=== PATIENT | male | born 1960 | race African-American/Black ===

== ENCOUNTER 2018-09-04 21:24 | Emergency (ER) | payer OTHER ==
--- NOTE | 2018-09-04 22:38 | RAD REPORT ---
EXAM DESCRIPTION: Shoulder Right 2 View - 09/04/2018 10:21 pm CLINICAL HISTORY: Pain x1 week COMPARISON: None. TECHNIQUE: Internal and external rotation views of the right shoulder were obtained. FINDINGS: There is no fracture or dislocation. AC joint is normal in appearance. No acute or suspici ous findings. IMPRESSION: Negative two-view right shoulder examination.
[2018-09-04] MEDS ORDERED: CYCLOBENZAPRINE 10 MG TAB ONE (23:10)
[2018-09-04] MEDS ORDERED: HYDROCODONE/APAP 10/325 TAB ONE (23:11)
[2018-09-04] MEDS ORDERED: DEXAMETHASONE 4 MG/ML VIAL ONE (23:12)
--- NOTE | 2018-09-04 23:18 | ER ---
Nurse's Notes [facility] Name: Luther Otoole Age: 58 yrs Sex: Male : 1960 Arrival Date: 09/04/2018 Time: 21:27 Bed 14 Private MD: Diagnosis: Unspecified sprain of right shoulder joint;Radiculopathy, cervical region;Muscle spasm Presentation: 09/04 21:55 Presenting complaint: Patient states: Right neck, shoulder and arm pain since 1 week cc3 after lifting a heavy object. Transition of care: patient was not received from another setting of care. Onset of symptoms is unknown. Risk Assessment: Do you want to hurt yourself or someone else? Patient reports no desire to harm self or others. Initial Sepsis Screen: Does the patient meet any 2 criteria? No. Patient's initial sepsis screen is negative. Does the patient have a suspected source of infection? No. Patient's initial sepsis screen is negative. Care prior to arrival: None. 21:55 Method Of Arrival: Ambulatory cc3 21:55 Acuity: KIMMIE 3 cc3 Triage Assessment: 21:55 General: Appears in no apparent distress. uncomfortable, Behavior is calm, cooperative, cc3 appropriate for age. Pain: Complains of pain in anterior aspect of right shoulder. EENT: No signs and/or symptoms were reported regarding the EENT system. Neuro: Level of Consciousness is awake, alert, obeys commands, Oriented to person, place, time, situation, Appropriate for age. Cardiovascular: Denies chest pain, Patient's skin is warm and dry. Respiratory: Airway is patent Respiratory effort is even, unlabored, Respiratory pattern is regular, symmetrical. GI: Abdomen is round non-distended. : No signs and/or symptoms were reported regarding the genitourinary system. Derm: No signs and/or symptoms reported regarding the dermatologic system. Musculoskeletal: Circulation, motion, and sensation intact. Range of motion: intact in all extremities. Historical: - Allergies: 21:55 No Known Allergies; cc3 - PMHx: 21:55 Hypertension; cc3 - PSHx: 21:55 None; cc3 - Immunization history:: Adult Immunizations up to date. - Social history:: Smoking status: Patient uses tobacco products, denies chronic smoking, but will smoke occasionally. - Ebola Screening: : No symptoms or risks identified at this time. - Family history:: not pertinent. - Hospitalizations: : No recent hospitalization is reported. Screenin:55 Abuse screen: Denies threats or abuse. Denies injuries from another. Nutritional cc3 screening: No deficits noted. Tuberculosis screening: No symptoms or risk factors identified. Fall Risk Ambulatory Aid- None/Bed Rest/Nurse Assist (0 pts). Gait- Normal/Bed Rest/Wheelchair (0 pts) Mental Status- Oriented to own ability (0 pts). Assessment: 21:55 General: see triage assessment. cc3 22:30 Reassessment: Patient appears in no apparent distress at this time. Patient and/or cc3 family updated on plan of care and expected duration. Pain level reassessed. Patient is alert, oriented x 3, equal unlabored respirations, skin warm/dry/pink. 23:40 Reassessment: Patient appears in no apparent distress at this time. Patient and/or cc3 family updated on plan of care and expected duration. Pain level reassessed. Patient is alert, oriented x 3, equal unlabored respirations, skin warm/dry/pink. Dr. Curtis discharged the patient home with prescription given. Right arm sling applied as ordered. No IV cannula in situ. Patient left ER vitally stable and ambulatory with his . Vital Signs: 21:55 BP 150 / 105; Pulse 86; Resp 20 S; Temp 98.2(O); Pulse Ox 99% on R/A; Weight 87.09 kg cc3 (R); Height 5 ft. 9 in. (175.26 cm) (R); Pain 10/10; 22:30 BP 142 / 96; Pulse 88; Resp 18 S; Pulse Ox 99% on R/A; cc3 23:30 BP 135 / 98; Pulse 85; Resp 18 S; Pulse Ox 98% on R/A; Pain 4/10; cc3 21:55 Body Mass Index 28.35 (87.09 kg, 175.26 cm) cc3 ED Course: 21:27 Patient arrived in ED. es 21:49 Carly Morgan is Primary Nurse. cc3 21:54 Aristeo Curtis MD is Attending Physician. rn 21:55 Arm band placed on right wrist. cc3 21:55 Patient has correct armband on for positive identification. Bed in low position. Call cc3 light in reach. Side rails up X 1. Pulse ox on. NIBP on. 22:08 Triage completed. cc3 22:20 X-ray completed. Portable x-ray completed in exam room. Patient tolerated procedure kp1 well. 22:21 XRAY Shoulder RIGHT 2 view In Process Unspecified. EDMS 23:17 Juan F Vásquez MD is Referral Physician. rn 23:40 No provider procedures requiring assistance completed. Patient did not have IV access cc3 during this emergency room visit. Administered Medications: 23:05 Drug: [place] 10 mg-325 mg 1 tabs Route: PO; cc3 23:30 Follow up: Response: No adverse reaction; Pain is decreased cc3 23:05 Drug: Flexeril 10 mg Route: PO; cc3 23:30 Follow up: Response: No adverse reaction; Pain is decreased cc3 23:07 Drug: Decadron 10 mg Route: IM; Site: right gluteus; cc3 23:30 Follow up: Response: No adverse reaction cc3 23:30 Drug: TORadol 60 mg Route: IM; Site: left gluteus; cc3 23:40 Follow up: Response: No adverse reaction; Pain is decreased cc3 Outcome: 23:17 Discharge ordered by . rn 23:40 Discharged to home ambulatory, with family. cc3 23:40 Condition: stable 23:40 Discharge instructions given to patient, family, Instructed on discharge instructions, follow up and referral plans. medication usage, Demonstrated understanding of instructions, follow-up care, medications, Prescriptions given X 3. 23:45 Patient left the ED. cc3 Signatures: Dispatcher [employer] EDCarolynn Dillon Roman, MD MD rn Poole, Kathy [facility] Carly Morgan cc3
--- NOTE | 2018-09-04 23:18 | EDPHYS ---
Physician Documentation [facility] Name: Luther Otoole Age: 58 yrs Sex: Male : 1960 Arrival Date: 09/04/2018 Time: 21:27 Bed 14 Private MD: ED Physician Aristeo Curtis HPI: 09/04 23:13 This 58 yrs old Black Male presents to ER via Ambulatory with complaints of Arm Pain, rn Shoulder Pain, Stiff Neck. 23:13 The patient or guardian complains of injury, pain. The complaints affect the anterior rn aspect of right shoulder. Onset: The symptoms/episode began/occurred 1 week(s) ago. Modifying factors: The symptoms are alleviated by nothing. the symptoms are aggravated by movement, lifting weight, bending arm. Severity of symptoms: At their worst the symptoms were moderate, in the emergency department the symptoms are unchanged. The patient has not experienced similar symptoms in the past. Reports last week, preparing for festival, lifted concrete bag, felt immediate pain in right shoulder, has been hurting since, now right neck and shoulder/arm hurt with movement and lifting things, no direct trauma, no chest pain, has had neck problems and pinched nerves in past. . Historical: - Allergies: 21:55 No Known Allergies; cc3 - PMHx: 21:55 Hypertension; cc3 - PSHx: 21:55 None; cc3 - Immunization history:: Adult Immunizations up to date. - Social history:: Smoking status: Patient uses tobacco products, denies chronic smoking, but will smoke occasionally. - Ebola Screening: : No symptoms or risks identified at this time. - Family history:: not pertinent. - Hospitalizations: : No recent hospitalization is reported. ROS: 23:13 Constitutional: Negative for fever, chills, and weight loss, Eyes: Negative for injury, rn pain, redness, and discharge, Neck: + neck pain Cardiovascular: Negative for chest pain, palpitations, and edema, Respiratory: Negative for shortness of breath, cough, wheezing, and pleuritic chest pain, Abdomen/GI: Negative for abdominal pain, nausea, vomiting, diarrhea, and constipation, Back: Negative for injury and pain, MS/Extremity: + right shoulder pain and injury Skin: Negative for injury, rash, and discoloration, Neuro: Negative for headache, weakness, numbness, tingling, and seizure. Exam: 23:13 Constitutional: This is a well developed, well nourished patient who is awake, alert, rn and in no acute distress. Head/Face: Normocephalic, atraumatic. Neck: Trachea midline, no masses palpated. No Meningismus. Chest/axilla: Normal chest wall appearance and motion. Nontender with no deformity. No lesions are appreciated. MS/ Extremity: Pulses equal, no cyanosis. Neurovascular intact. Full, passive ROM. Limited Active ROM, no deformity, + pain located to right shoulder joint, no bony tenderness or deformity. No crepitus. Neuro: Awake and alert, GCS 15, oriented to person, place, time, and situation. Cranial nerves II-XII grossly intact. Motor strength 5/5 in all extremities. Sensory grossly intact. Vital Signs: 21:55 BP 150 / 105; Pulse 86; Resp 20 S; Temp 98.2(O); Pulse Ox 99% on R/A; Weight 87.09 kg cc3 (R); Height 5 ft. 9 in. (175.26 cm) (R); Pain 10/10; 22:30 BP 142 / 96; Pulse 88; Resp 18 S; Pulse Ox 99% on R/A; cc3 23:30 BP 135 / 98; Pulse 85; Resp 18 S; Pulse Ox 98% on R/A; Pain 4/10; cc3 21:55 Body Mass Index 28.35 (87.09 kg, 175.26 cm) cc3 MDM: 21:54 Patient medically screened. rn 23:13 Differential diagnosis: dislocation, closed fracture, contusion, tendonitis, muscle rn spasm, tendonitis, radiculopathy. Data reviewed: vital signs, nurses notes, radiologic studies, plain films. 23:16 Counseling: I had a detailed discussion with the patient and/or guardian regarding: the rn historical points, exam findings, and any diagnostic results supporting the discharge/admit diagnosis, radiology results, the need for outpatient follow up, to return to the emergency department if symptoms worsen or persist or if there are any questions or concerns that arise at home. Response to treatment: the patient's symptoms have mildly improved after treatment, and as a result, I will discharge patient. Special discussion: I discussed with the patient/guardian in detail that at this point there is no indication for admission to the hospital. It is understood, however, that if the symptoms persist or worsen the patient needs to return immediately for re-evaluation. 09/04 22:03 Order name: ADENIKE Shoulder RIGHT 2 view; Complete Time: 22:39 rn Administered Medications: 23:05 Drug: [place] 10 mg-325 mg 1 tabs Route: PO; cc3 23:30 Follow up: Response: No adverse reaction; Pain is decreased cc3 23:05 Drug: Flexeril 10 mg Route: PO; cc3 23:30 Follow up: Response: No adverse reaction; Pain is decreased cc3 23:07 Drug: Decadron 10 mg Route: IM; Site: right gluteus; cc3 23:30 Follow up: Response: No adverse reaction cc3 23:30 Drug: TORadol 60 mg Route: IM; Site: left gluteus; cc3 23:40 Follow up: Response: No adverse reaction; Pain is decreased cc3 Disposition: 09/04/18 23:17 Discharged to Home. Impression: Unspecified sprain of right shoulder joint, Radiculopathy, cervical region, Muscle spasm. - Condition is Stable. - Discharge Instructions: Cervical Radiculopathy, Shoulder Pain, Shoulder Sprain. - Prescriptions for Tylenol- Codeine #3 300-30 mg Oral Tablet - take 1 tablet by ORAL route every 6 hours As needed; 15 tablet. Cyclobenzaprine 10 mg Oral Tablet - take 1 tablet by ORAL route every 8 hours As needed; 20 tablet. Medrol (Gabo) 4 mg Oral Tablets, Dose Pack - take 1 tablet by ORAL route as directed - follow package instructions; 1 packet. - Medication Reconciliation Form, Thank You Letter, Antibiotic Education, Prescription Opioid Use form. - Follow up: Juan F Vásquez MD; When: As needed; Reason: Recheck today's complaints, Re-evaluation by your physician. - Problem is an ongoing problem. - Symptoms have improved. Signatures: Dispatcher [employer] EDAristeo Sanders MD MD rn Cordel, Charlene cc3 Corrections: (The following items were deleted from the chart) 23:45 23:17 09/04/2018 23:17 Discharged to Home. Impression: Unspecified sprain of right cc3 shoulder joint; Radiculopathy, cervical region; Muscle spasm. Condition is Stable. Forms are Medication Reconciliation Form, Thank You Letter, Antibiotic Education, Prescription Opioid Use. Follow up: Dr. Juan F Vásquez; When: As needed; Reason: Recheck today's complaints, Re-evaluation by your physician. Problem is an ongoing problem. Symptoms have improved. rn
[2018-09-04] MEDS ORDERED: KETOROLAC 30 MG/ML INJ ONE (23:35)
== END 2018-09-04 23:45 | disposition home or self-care (01) ==
LOC: ER 21:24
DX: S43.401A Unspecified sprain of right shoulder joint, initial encounter (principal); M54.12 Radiculopathy, cervical region; M62.838 Other muscle spasm; I10 Essential (primary) hypertension; X50.0XXA Overexertion from strenuous movement or load, initial encounter; Y93.89 Activity, other specified; Y92.9 Unspecified place or not applicable; Y99.8 Other external cause status; Z72.0 Tobacco use
CPT/HCPCS: 96372; 99284

== ENCOUNTER 2018-09-16 09:08 | Emergency (ER) | payer OTHER ==
[2018-09-16] MEDS ORDERED: DEXAMETHASONE 10 MG/ML VIAL ONE (10:11)
[2018-09-16] MEDS ORDERED: HYDROMORPHONE HCL 1 MG/ML INJ ONE (10:12)
[2018-09-16] MEDS ORDERED: NA CHLORIDE 0.9% 1,000 ML ONE (10:12)
[2018-09-16] MEDS ORDERED: ONDANSETRON 4 MG/2 ML VIAL ONE (10:12)
[2018-09-16] MEDS ORDERED: DIAZEPAM 5 MG TABLET ONE (10:12)
[2018-09-16] MEDS ORDERED: KETOROLAC 30 MG/ML INJ ONE (10:12)
[2018-09-16 10:37] LABS: Absolute Lymphocytes (CBC) 3.5 K/uL (0.7-4.9); Absolute Monocytes 0.6 K/uL (0.1-1.3); Absolute Neutrophil 3.9 K/uL (1.8-8.0); Basophils % 0.8 % (0-1.3); Hematocrit 42.4 % (39.6-49.0); Lymphocytes % 41.6 % (15.3-44.8); MCH 30.8 pg (27.0-35.0); MCV 88.9 fL (80-100); MPV 8.5 fL (7.6-11.3); Monocytes % 7.6 % (3.3-12.3); RBC Red Blood Cell Count 4.77 M/uL (4.33-5.43)
--- NOTE | 2018-09-16 10:56 | RAD REPORT ---
EXAM DESCRIPTION: CT - C Spine Wo Con - 09/16/2018 10:33 am CLINICAL HISTORY: Neck pain, right upper extremity radiculopathy COMPARISON: None. TECHNIQUE: Axial 2 mm thick images of the cervical spine were obtained with sagittal and coronal rec onstruction images generated and reviewed. All CT scans are performed using dose optimization technique as appropriate and may include automated exposure control or mA/KV adjustment according to patient size. FINDINGS: Cervical bodies are normal in height. There is reversal of the usual cervical lordosis at C5-6. No AP subluxation abnormality. There is a minimal scoliotic curvature seen on the AP projection . Patient has left lateral tilt that is believed to be positional. Significant degenerative disc dise ase and disc space narrowing present at C 5-6. Bilateral bony foraminal encroachment changes are pres ent at C5-6. Canal is borderline stenotic at C5-6. No fracture or acute bony abnormality. No paraspinal mass or hematoma. Central canal detail is inherently limited on CT imaging. IMPRESSION: Advanced for age degenerative change at the C5-6 disc level with borderline spinal steno sis and bilateral foraminal encroachment.
[2018-09-16 11:00] LABS: Albumin 3.9 g/dL (3.4-5.0); Bilirubin Total 0.3 mg/dL (0.2-1.0); Potassium 4.5 mmol/L (3.5-5.1)
--- NOTE | 2018-09-16 11:06 | RAD REPORT ---
EXAM DESCRIPTION: Shoulder Right 2 View - 09/16/2018 10:07 am CLINICAL HISTORY: Persistent right neck and shoulder pain COMPARISON: September 04, 2018 TECHNIQUE: Internal and external rotation views of the right shoulder were obtained. FINDINGS: There is no fracture or dislocation. AC joint is normal in appearance. Acromial humeral j oint space is normal with no abnormal calcifications. No rib or parenchymal abnormality of the upper chest. IMPRESSION: Negative two-view right shoulder examination for acute or significant finding. No identifiable changes from September 04.
--- NOTE | 2018-09-16 11:52 | ER ---
Nurse's Notes [facility] Name: Luther Otoole Age: 58 yrs Sex: Male : 1960 Arrival Date: 09/16/2018 Time: 09:11 Bed 18 Private MD: Diagnosis: Radiculopathy, cervical region;Pain in right shoulder;Spinal stenosis, cervical [id number] Presentation: 09/16 09:18 Presenting complaint: Patient states: right shoulder and neck pain for a couple of sv weeks. Was seen here Thanksgiving night and sent home with prescriptions but the pain has not decreased. Transition of care: patient was not received from another setting of care. Onset of symptoms was August 2018. Care prior to arrival: None. 09:18 Method Of Arrival: Ambulatory sv 09:18 Acuity: KIMMIE 4 sv 11:00 Risk Assessment: Do you want to hurt yourself or someone else? Patient reports no bp desire to harm self or others. Initial Sepsis Screen: Does the patient meet any 2 criteria? No. Patient's initial sepsis screen is negative. Does the patient have a suspected source of infection? No. Patient's initial sepsis screen is negative. Triage Assessment: 09:20 General: Appears in no apparent distress. uncomfortable, Behavior is calm, cooperative, sv appropriate for age. Pain: Complains of pain in right arm, right posterior aspect of neck, right lateral aspect of neck and right anterior aspect of neck Pain currently is 10 out of 10 on a pain scale. Neuro: Level of Consciousness is awake, alert, obeys commands, Oriented to person, place, time, situation, Moves all extremities. Full function. Respiratory: Respiratory effort is even, unlabored, Respiratory pattern is regular, symmetrical. Historical: - Allergies: 09:20 No Known Allergies; sv - PMHx: 09:20 Hypertension; sv - PSHx: 09:20 None; sv - Immunization history:: Flu vaccine is up to date. - Social history:: Smoking status: Patient uses tobacco products, denies chronic smoking, but will smoke occasionally. - Ebola Screening: : No symptoms or risks identified at this time. - Family history:: not pertinent. Screenin:32 Abuse screen: Denies threats or abuse. Denies injuries from another. Nutritional bp screening: No deficits noted. Tuberculosis screening: No symptoms or risk factors identified. Fall Risk None identified. Assessment: 09:20 General: Appears in no apparent distress. uncomfortable, Behavior is calm, cooperative, bp appropriate for age. Pain: Complains of pain in neck and right arm. Neuro: Level of Consciousness is awake, alert, obeys commands, Oriented to person, place, time, situation, Appropriate for age. Cardiovascular: No deficits noted. Respiratory: Airway is patent Respiratory effort is even, unlabored, Respiratory pattern is regular, symmetrical. GI: No signs and/or symptoms were reported involving the gastrointestinal system. : No signs and/or symptoms were reported regarding the genitourinary system. EENT: No deficits noted. Derm: No deficits noted. Musculoskeletal: Circulation, motion, and sensation intact. Range of motion: intact in all extremities. 11:00 Reassessment: ALL CURRENT ORDERS COMPLETED, DISPO PENDING. bp 12:15 Reassessment: PT D/C HOME AMBULATORY WITH FAMILY, DX WITH CERVICAL RADICULOPATHY. bp Vital Signs: 09:19 BP 139 / 108; Pulse 99; Resp 20; Temp 97.5; Pulse Ox 99% ; Weight 90.26 kg; Height 5 sv ft. 10 in. (177.80 cm); Pain 10/10; 10:25 BP 142 / 94; Pulse 77; Resp 12; Pulse Ox 94% ; bp 11:15 BP 121 / 76; Pulse 67; Resp 14; Pulse Ox 98% ; bp 09:19 Body Mass Index 28.55 (90.26 kg, 177.80 cm) sv ED Course: 09:11 Patient arrived in ED. rg4 09:19 Triage completed. sv 09:20 Arm band placed on Patient placed in an exam room, on a stretcher. sv 09:23 Frederic Grey, DINORA is Primary Nurse. bp 09:29 Jose Jaramillo MD is Attending Physician. miriam 09:32 Patient has correct armband on for positive identification. Bed in low position. Call bp light in reach. Side rails up X2. Adult w/ patient. 10:07 X-ray completed. Portable x-ray completed in exam room. Patient tolerated procedure jb2 well. 10:09 Shoulder Right (2 View) XRAY In Process Unspecified. EDMS 10:15 Inserted saline lock: 20 gauge in left antecubital area, using aseptic technique. Blood bp collected. 10:31 CT completed. Patient tolerated procedure well. Patient moved to CT via wheelchair. vr Patient moved back from CT. 10:35 CT C Spine In Process Unspecified. EDMS 11:51 Azael Sellers MD is Referral Physician. miriam 12:15 No provider procedures requiring assistance completed. IV discontinued, intact, bp bleeding controlled, No redness/swelling at site. Pressure dressing applied. Administered Medications: 10:15 Drug: NS 0.9% 1000 ml Route: IV; Rate: 1 bolus; Site: left antecubital; bp 12:14 Follow up: IV Status: Completed infusion; IV Intake: 1000ml bp 10:15 Drug: TORadol 30 mg Route: IVP; Site: left antecubital; bp 10:24 Follow up: Response: Pain is decreased bp 10:15 Drug: Valium 5 mg Route: PO; bp 10:24 Follow up: Response: No adverse reaction bp 10:15 Drug: Decadron - Dexamethasone 10 mg Route: IVP; Site: left antecubital; bp 10:24 Follow up: Response: No adverse reaction bp 10:15 Drug: Dilaudid 1 mg Route: IVP; Site: left antecubital; bp 10:24 Follow up: Response: Pain is decreased bp 10:15 Drug: Zofran 4 mg Route: IVP; Site: left antecubital; bp 10:24 Follow up: Response: No adverse reaction bp Intake: 12:14 IV: 1000ml; Total: 1000ml. bp Outcome: 11:51 Discharge ordered by . miriam 12:15 Discharged to home ambulatory, with family. bp 12:15 Condition: stable 12:15 Discharge instructions given to patient, Instructed on discharge instructions, follow up and referral plans. medication usage, Demonstrated understanding of instructions, follow-up care, medications, Prescriptions given X 4. 12:17 Patient left the ED. bp Signatures: Dispatcher [employer] EDIA Nighat Barrow, Jose Pna RN, MD MD cha Buechter, Jesse jb2 Davis, Victoria vr Garcia, Rubi rg4 Peltier, Brian, RN RN bp
--- NOTE | 2018-09-16 11:52 | EDPHYS ---
Physician Documentation [facility] Name: Luther Otoole Age: 58 yrs Sex: Male : 1960 Arrival Date: 09/16/2018 Time: 09:11 Bed 18 Private MD: ED Physician Jose Jaramillo HPI: 09/16 09:51 This 58 yrs old Black Male presents to ER via Ambulatory with complaints of Neck Pain, miriam <24hrs Old, Shoulder Pain. 09:51 The patient or guardian complains of decreased range of motion, pain, that is acute. miriam The symptoms are located on the right arm and right lateral aspect of neck and right posterior aspect of neck. Onset: The symptoms/episode began/occurred 3 day(s) ago. Context: The problem was sustained at work, The neck injury/problem resulted from lifting. Associated signs and symptoms: The patient has no apparent associated signs or symptoms. Location: right trapezius. Modifying factors: The symptoms are alleviated by remaining still, the symptoms are aggravated by movement. Severity of symptoms: At their worst the symptoms were moderate, in the emergency department the symptoms are actually worse, mildly, markedly. The patient has not experienced similar symptoms in the past. Historical: - Allergies: 09:20 No Known Allergies; sv - PMHx: 09:20 Hypertension; sv - PSHx: 09:20 None; sv - Immunization history:: Flu vaccine is up to date. - Social history:: Smoking status: Patient uses tobacco products, denies chronic smoking, but will smoke occasionally. - Ebola Screening: : No symptoms or risks identified at this time. - Family history:: not pertinent. ROS: 09:51 Constitutional: Negative for fever, chills, and weight loss, Eyes: Negative for injury, miriam pain, redness, and discharge, ENT: Negative for injury, pain, and discharge, Neck: Negative for injury, pain, and swelling, Cardiovascular: Negative for chest pain, palpitations, and edema, Respiratory: Negative for shortness of breath, cough, wheezing, and pleuritic chest pain, Abdomen/GI: Negative for abdominal pain, nausea, vomiting, diarrhea, and constipation, : Negative for injury, bleeding, discharge, and swelling, Skin: Negative for injury, rash, and discoloration, Neuro: Negative for headache, weakness, numbness, tingling, and seizure, Psych: Negative for depression, anxiety, suicide ideation, homicidal ideation, and hallucinations, Allergy/Immunology: Negative for hives, rash, and allergies, Endocrine: Negative for neck swelling, polydipsia, polyuria, polyphagia, and marked weight changes, Hematologic/Lymphatic: Negative for swollen nodes, abnormal bleeding, and unusual bruising. 09:51 Back: Positive for decreased range of motion, pain at rest, pain with movement, of the right trapezius. 09:51 MS/extremity: Positive for decreased range of motion, pain, tenderness, of the posterior aspect of right shoulder and right tricep. Exam: 09:51 Constitutional: This is a well developed, well nourished patient who is awake, alert, miriam and in no acute distress. Head/Face: Normocephalic, atraumatic. Eyes: Pupils equal round and reactive to light, extra-ocular motions intact. Lids and lashes normal. Conjunctiva and sclera are non-icteric and not injected. Cornea within normal limits. Periorbital areas with no swelling, redness, or edema. ENT: Nares patent. No nasal discharge, no septal abnormalities noted. Tympanic membranes are normal and external auditory canals are clear. Oropharynx with no redness, swelling, or masses, exudates, or evidence of obstruction, uvula midline. Mucous membranes moist. Chest/axilla: Normal chest wall appearance and motion. Nontender with no deformity. No lesions are appreciated. Cardiovascular: Regular rate and rhythm with a normal S1 and S2. No gallops, murmurs, or rubs. Normal PMI, no JVD. No pulse deficits. Respiratory: Lungs have equal breath sounds bilaterally, clear to auscultation and percussion. No rales, rhonchi or wheezes noted. No increased work of breathing, no retractions or nasal flaring. Abdomen/GI: Soft, non-tender, with normal bowel sounds. No distension or tympany. No guarding or rebound. No evidence of tenderness throughout. Skin: Warm, dry with normal turgor. Normal color with no rashes, no lesions, and no evidence of cellulitis. MS/ Extremity: Pulses equal, no cyanosis. Neurovascular intact. Full, normal range of motion. Neuro: Awake and alert, GCS 15, oriented to person, place, time, and situation. Cranial nerves II-XII grossly intact. Motor strength 5/5 in all extremities. Sensory grossly intact. Cerebellar exam normal. Normal gait. Psych: Awake, alert, with orientation to person, place and time. Behavior, mood, and affect are within normal limits. 09:51 Neck: External neck: is normal, no acute changes, ROM/movement: limited range of motion, that is moderate, Lymph nodes: no appreciated lymphadenopathy. Vital Signs: 09:19 BP 139 / 108; Pulse 99; Resp 20; Temp 97.5; Pulse Ox 99% ; Weight 90.26 kg; Height 5 sv ft. 10 in. (177.80 cm); Pain 10/10; 10:25 BP 142 / 94; Pulse 77; Resp 12; Pulse Ox 94% ; bp 11:15 BP 121 / 76; Pulse 67; Resp 14; Pulse Ox 98% ; bp 09:19 Body Mass Index 28.55 (90.26 kg, 177.80 cm) sv MDM: 09:29 Patient medically screened. [facility] 09:55 Data reviewed: vital signs, nurses notes, lab test result(s), radiologic studies, CT miriam scan, plain films. 09/16 09:50 Order name: CBC with Diff; Complete Time: 10:57 [facility] 09/16 09:50 Order name: Comprehensive Metabolic Panel; Complete Time: 11:49 [facility] 09/16 09:50 Order name: CT C Spine; Complete Time: 11:49 [facility] 09/16 09:50 Order name: Shoulder Right (2 View) XRAY; Complete Time: 11:49 [facility] Administered Medications: 10:15 Drug: NS 0.9% 1000 ml Route: IV; Rate: 1 bolus; Site: left antecubital; bp 12:14 Follow up: IV Status: Completed infusion; IV Intake: 1000ml bp 10:15 Drug: TORadol 30 mg Route: IVP; Site: left antecubital; bp 10:24 Follow up: Response: Pain is decreased bp 10:15 Drug: Valium 5 mg Route: PO; bp 10:24 Follow up: Response: No adverse reaction bp 10:15 Drug: Decadron - Dexamethasone 10 mg Route: IVP; Site: left antecubital; bp 10:24 Follow up: Response: No adverse reaction bp 10:15 Drug: Dilaudid 1 mg Route: IVP; Site: left antecubital; bp 10:24 Follow up: Response: Pain is decreased bp 10:15 Drug: Zofran 4 mg Route: IVP; Site: left antecubital; bp 10:24 Follow up: Response: No adverse reaction bp Disposition: 09/16/18 11:51 Discharged to Home. Impression: Radiculopathy, cervical region, Pain in right shoulder, Spinal stenosis, cervical region - c5-c6. - Condition is Stable. - Discharge Instructions: Cervical Radiculopathy, Musculoskeletal Pain, Shoulder Pain, Shoulder Pain, [id number]. - Prescriptions for Ibuprofen 600 mg Oral Tablet - take 1 tablet by ORAL route every 8 hours As needed take with food; 21 tablet. Tylenol- Codeine #3 300-30 mg Oral Tablet - take 2 tablet by ORAL route every 6 hours As needed; 30 tablet. Valium 5 mg Oral Tablet - take 1 tablet by ORAL route every 8 hours As needed; 20 tablet. Prednisone 20 mg Oral Tablet - take 2 tablet by ORAL route once daily for 5 days; 10 tablet. - Medication Reconciliation Form, Thank You Letter, Antibiotic Education, Prescription Opioid Use form. - Follow up: Private Physician; When: 2 - 3 days; Reason: Recheck today's complaints, Continuance of care, Re-evaluation by your physician. Follow up: Azael Sellers MD; When: 2 - 3 days; Reason: Recheck today's complaints, Continuance of care, Re-evaluation by your physician. - Problem is new. - Symptoms have improved. Signatures: Dispatcher [employer] Nighat Caruso RN RN sv Anderson, Corey, MD MD cha Peltier, Brian, RN RN bp Corrections: (The following items were deleted from the chart) 10:23 09:50 Sling ordered. miriam bp 12:17 11:51 09/16/2018 11:51 Discharged to Home. Impression: Radiculopathy, cervical region; bp Pain in right shoulder; Spinal stenosis, cervical region - c5-c6. Condition is Stable. Discharge Instructions: Cervical Radiculopathy, Musculoskeletal Pain, Shoulder Pain, Shoulder Pain, [id number]. Prescriptions for Ibuprofen 600 mg Oral Tablet - take 1 tablet by ORAL route every 8 hours As needed take with food; 21 tablet, Tylenol-Codeine #3 300-30 mg Oral Tablet - take 2 tablet by ORAL route every 6 hours As needed; 30 tablet, Valium 5 mg Oral Tablet - take 1 tablet by ORAL route every 8 hours As needed; 20 tablet, Prednisone 20 mg Oral Tablet - take 2 tablet by ORAL route once daily for 5 days; 10 tablet. and Forms are Medication Reconciliation Form, Thank You Letter, Antibiotic Education, Prescription Opioid Use. Follow up: Private Physician; When: 2 - 3 days; Reason: Recheck today's complaints, Continuance of care, Re-evaluation by your physician. Follow up: Azael Sellers; When: 2 - 3 days; Reason: Recheck today's complaints, Continuance of care, Re-evaluation by your physician. Problem is new. Symptoms have improved. miriam
== END 2018-09-16 12:17 | disposition home or self-care (01) ==
LOC: ER 09:08
DX: M50.122 Cervical disc disorder at C5-C6 level with radiculopathy (principal); M48.02 Spinal stenosis, cervical region; M25.511 Pain in right shoulder; Z72.0 Tobacco use
CPT/HCPCS: 36415; 72125; 80053; 85025; 96361; 96374; 96375; 99284; J1100; J1170; J2405; J7030

== ENCOUNTER 2024-02-24 09:10 | Emergency (ER) | payer OTHER, SELFPAY ==
--- OUTSIDE RECORDS SUMMARY | 2024-02-24 09:12 | XMS REPORT | Continuity of Care Document ---
Author Name Unknown Address [address] [place] [address] [place] [address] thconnect Address [address] [place] [address] [address] [place] [address] Care Team Providers Care Auto Refinisher Name Role Phone PCP, PATIENT DOES NOT HAVE A Primary Care Physic roberto Unavailable PAULA KEANE Attending Clinician Unavailab MARGY Chang Attending Clinician Prema vailable LAB90 Attending Clinician Unavailable RADIOLOGY Attending Clinician Unavailable Radiology Attending Clinician Unavailable JUANA CAST Admitting Clinician Unavailable Payers Payer Name Policy Type Policy Number Effective Date Expirati on Date Source [employer] RHIANNA SMITH S O PASTE UP ARTIST 94 ON 9 [id number] 2023 00:00:00 L [facility] CLAIMS [id number] 2019 00:00:00 Allergies, Adverse Reactions, Alerts Allergy Name Allergy Type Status Severity Reaction(s) Onset Date Inactive Date Treating Clinician Comments Source NO KNOWN ALLERGIE S Drug Class Active Univers [facility] Social History Social Habit Start Date Stop Date Quantity Comments Source Sexual orientation Dayton Zimmer - External Tobacco use and exposure 2023-07-03 00:00:00 2023-07-03 00:00:00 Smokeless tobacco non-user Candy Zimmer - External Alcohol intake 2023-07-03 00:00:00 2023-07-03 00:00:00 Lifetime non-drinker (finding) Candy Zimmer - External History of Social function 2023-07-03 00:00:00 2023-07-03 00:00:00 Candy Zimmer - External Sex Assigned At 1960 00:00:00 1960 00:00:00 Candy Byrne External Smoking Status Start Date Stop Date Source Unknown if ever smoked [facility] Never smoked tobacco Candy Byrne External Medications Ordered Medication Name Filled Medication Name Start Date Stop Date Current Medication? Ordering Clinician Indication Dosage Frequency Signature (SIG) Comments Components Source Atorvastati n Calcium 20 MG oral Tablet 07-03 10:59: 42 07-03 00:00 :00 No 20mg Take 1 tablet (20 mg total) by mouth daily. Candy chavira hydroCHLORO thiazide 12.5 MG oral Capsule 07-03 10:59: 42 07-03 00:00 :00 No 12.5mg Take 1 capsule (12.5 mg total) by mouth daily. Candy chavira Atorvastati n Calcium 20 MG oral Tablet 07-03 00:00: 00 Yes [id number] 20mg Take 1 tablet (20 mg total) by mouth daily. Candy chavira hydroCHLORO thiazide 12.5 MG oral Capsule 07-03 00:00: 00 Yes [id number] 12.5mg Take 1 capsule (12.5 mg total) by mouth daily. Candy chavira Vital Signs Vital Name Observation Time Observation Value Comments S joseloyeny Systolic blood pressure 2023-07-03 16:02:00 138 mm[Hg] Candy zepeda - External Diastolic blood pressure 2023-07-03 16:02:00 78 mm[Hg] Candy Weinstein ld - External Heart rate 2023-07-03 15:42:00 69 /min Michele Zimmer - External Body temperature 2023-07-03 15:42:00 36.44 Hollie Candy Zimmer - External Respiratory rate 2023-07-03 15:42:00 20 /min Candy Zimmer - External Body height 2023-07-03 15:42:00 175.3 cm Jesenia Zimmer - External Body weight 2023-07-03 15:42:00 78.472 kg Jesenia Zimmer - External BMI 2023-07-03 15:42:00 25.55 kg/m2 Jesenia Jeffriesold - External Oxygen saturation in Arterial blood by Pulse oximetry 2023-07-03 15:42:00 99 /min Candy Weinstein ld - External Procedures Procedure Date / Time Performed Performing Clinicia n Source XR SHOULDER 2+ VW RIGHT 2019-12-18 19:34:[address] [facility] Encounters Start Date/Time End Date/Time Encounter Type Admission Type Attending [facility] Care Facility Care Department Encounter ID Source 2024-01-07 00:00:00 2024-01-07 00:00:00 Outpatient PAULA KEANE [id number] [facility] 2023-12-13 00:00:00 2023-12-13 00:00:00 Outpatient PAULA KEANE [id number] [facility] 2023-10-01 00:00:00 2023-10-01 00:00:00 Outpatient PAULA KEANE [id number] [facility] 2023-07-08 00:00:00 2023-07-08 00:00:00 Outpatient PAULA KEANE [id number] [facility] 2023-07-05 00:00:00 2023-07-05 00:00:00 Outpatient PAULA KEANE [id number] [facility] 2023-07-04 08:00:00 2023-07-04 08:00:00 Outpatient LAB90 CANDY SINGER [id number] [facility] 2023-07-03 10:30:00 2023-07-03 10:30:00 Outpatient PAULA KEANE [id number] [facility] 2023-07-03 00:00:00 2023-07-03 00:00:00 [facility] [id number] [facility] 2019-12-18 13:21:40 2019-12-18 23:59:00 Outpatient R RADIOLOGY [facility] [id number] [facility] 2019-12-18 13:15:00 2019-12-18 23:59:00 Hospital Encounter Radiology [facility] [id number] [facility] Results Test Description Test Time Test Comments Results Resul t Comments Source XR SHOULDER 2+ VW RIGHT 22:08:40 No acute fracture. Borderline widening of the acromioclavicular joint may represent type IIinjury. EXAM: XR SHOULDER 2+ VW RIGHT HISTORY: Acute pain of right shoulder COMPARISON: None. FINDINGS: No acute fracture or dislocation is seen. There is borderline widening ofthe acromioclavicular joint. The soft tissues are unremarkable. [facility], Radiant Results Inft User - 12/18/2019 4:09 PM CSTEXAM:XR SHOULDER 2+ VW RIGHTHISTORY:Acute pain of right shoulder COMPARISON:None.FINDI NGS: No acute fracture or dislocation is seen. There is borderline widening ofthe acromioclavicular joint. The soft tissues are unremarkable.IMPRESSI ONNo acute fracture.Borderline widening of the acromioclavicular joint may represent type IIinjury. [facility]
[2024-02-24] MEDS ORDERED: FENTANYL CITR 100 MCG/2 ML ONE (10:16)
[2024-02-24] MEDS ORDERED: ONDANSETRON 4 MG/2 ML VIAL ONE (10:16)
[2024-02-24 10:59] LABS: ALT/SGPT 20 U/L (16-61); Albumin 3.7 g/dL (3.4-5.0); Albumin/Globulin Ratio 0.8 (1.1-1.8); Alkaline Phosphatase 63 U/L (45-117); Anion Gap 5.4 mEq/L (5.0-15.0); BUN Blood Urea Nitrogen 15 mg/dL (7-18); Bicarbonate 29 mEq/L (21-32); Globulin 4.6 g/dL (2.3-3.5); Glomerular Filtration Rate 76 ml/min (=/>90); Glucose Level 107 mg/dL (74-106); Potassium 3.4 mEq/L (3.5-5.1); Protein, Total 8.3 g/dL (6.4-8.2); Sodium Level 133 mEq/L (136-145)
[2024-02-24 11:00] LABS: Absolute Basophils 0.2 K/uL (0-0.5); Absolute Lymphocytes (CBC) 4.2 K/uL (0.7-4.9); Absolute Monocytes 1.3 K/uL (0.1-1.3); Absolute Neutrophil 14.5 K/uL (1.8-8.0); Eosinophils % 0.1 % (0-4.4); Hematocrit 40.5 % (39.6-49.0); Hemoglobin 13.4 g/dL (13.6-17.9); Lymphocytes % 20.8 % (15.3-44.8); MCH 29.6 pg (27.0-35.0); MCV 89.6 fL (80-100); MPV 8.4 fL (7.6-11.3); Monocytes % 6.4 % (3.3-12.3); Neutrophils % 71.7 % (41.7-73.7); Platelets 273 thou/uL (152-406); RBC Red Blood Cell Count 4.52 M/uL (4.33-5.43)
[2024-02-24 11:01] LABS: AST/SGOT < 10 U/L (15-37)
[2024-02-24] MEDS ORDERED: NA CHLORIDE 0.9% 100 ML ONE (11:25)
[2024-02-24] MEDS ORDERED: NA CHLORIDE 0.9% 250 ML ONE (11:25)
[2024-02-24] MEDS ORDERED: VANCOMYCIN 1 GM/VIAL ONE (11:25)
[2024-02-24] MEDS ORDERED: PIPERACIL/TAZO 3.375 GM VIAL IV ONE (11:25)
--- NOTE | 2024-02-24 11:38 | ER ---
Nurse's Notes [facility] Name: Luther Otoole Age: 63 yrs Sex: Male : 1960 Arrival Date: 02/24/2024 Time: 09:10 Bed 8 Private MD: Diagnosis: Left thumb abscess;Left thumb cellulitis Presentation: 02/23 09:19 Chief complaint: Patient states: LEFT THUMB INFLAMMATION 2/2 WORK INJURY. Coronavirus bp screen: At this time, the client does not indicate any symptoms associated with coronavirus-19. Ebola Screen: No symptoms or risks identified at this time. Initial Sepsis Screen: Does the patient meet any 2 criteria? HR > 90 bpm. No. Patient's initial sepsis screen is negative. Does the patient have a suspected source of infection? No. Patient's initial sepsis screen is negative. Risk Assessment: Do you want to hurt yourself or someone else? Patient reports no desire to harm self or others. Onset of symptoms is unknown. 09:19 Method Of Arrival: Ambulatory bp 09:19 Acuity: KIMMIE 3 bp Historical: - Allergies: 09:21 No Known Drug Allergies; bp - Home Meds: 09:21 Hydrochlorothiazide Oral [Active]; atorvastatin oral [Active]; bp - PMHx: 09:21 Hypertension; bp - Immunization history:: Adult Immunizations Last tetanus immunization: up to date. - Infectious Disease History:: Denies. - Social history:: Smoking status: Patient denies any tobacco usage or history of. Screenin:41 [facility] ED Fall Risk Assessment (Adult) History of falling in the last 3 months, ld1 including since admission No falls in past 3 months (0 pts). Abuse screen: Denies threats or abuse. Denies injuries from another. Nutritional screening: No deficits noted. Tuberculosis screening: No symptoms or risk factors identified. Assessment: 10:41 General: Appears in no apparent distress. uncomfortable, Behavior is calm, cooperative, ld1 appropriate for age. Pain: Complains of pain in left hand Pain does not radiate. Pain currently is 8 out of 10 on a pain scale. Quality of pain is described as throbbing, Pain began 2-3 days ago. Is continuous. Neuro: Level of Consciousness is awake, alert, obeys commands, Oriented to person, place, time, situation. Cardiovascular: Capillary refill < 3 seconds Patient's skin is warm and dry. Respiratory: Airway is patent Respiratory effort is even, unlabored. GI: Abdomen is flat, non-distended. : No signs and/or symptoms were reported regarding the genitourinary system. EENT: No signs and/or symptoms were reported regarding the EENT system. Derm: Wound noted left hand. 13:47 Reassessment: No changes from previously documented assessment. Patient and/or family ll1 updated on plan of care and expected duration. Pain level reassessed. Patient is alert, oriented x 3, equal unlabored respirations, skin warm/dry/pink. Vital Signs: 09:19 BP 138 / 99; Pulse 106; Resp 20; Temp 99; Pulse Ox 100% ; Weight 79.38 kg; Height 5 ft. bp 9 in. ; 10:41 BP 125 / 86; Pulse 97; Resp 18; Pulse Ox 95% on R/A; Pain 8/10; ld1 13:08 BP 149 / 97; Pulse 86; Resp 16; Pulse Ox 99% ; ko1 13:47 BP 132 / 81; Pulse 82; Resp 17; Temp 98.9; Pulse Ox 100% ; ll1 09:19 Body Mass Index 25.84 (79.38 kg, 175.26 cm) bp 10:41 Pain Scale: Adult ld1 ED Course: 09:12 Patient arrived in ED. mr 09:13 Jeannine Parr, [facility] 09:13 Gildardo Gupta DO is Attending Physician. 7 09:20 Triage completed. bp 10:32 XRAY Hand LEFT 3 View In Process Unspecified. EDMS 10:40 Trish Gupta, RN is Primary Nurse. ld1 10:41 Patient has correct armband on for positive identification. Placed in gown. Bed in low ld1 position. Call light in reach. Side rails up X2. Pulse ox on. NIBP on. Door closed. Noise minimized. Warm blanket given. 10:41 No provider procedures requiring assistance completed. Inserted saline lock: 20 gauge ld1 in right antecubital area, using aseptic technique. Blood collected. 13:08 Provided Education on: na. ko1 13:08 Patient transferred, IV remains in place. ko1 13:48 Patient placed on a stretcher. ll1 Administered Medications: 10:41 Drug: fentaNYL (PF) IVP 50 mcg IVP once Route: IVP; Site: right antecubital; ld1 10:56 Follow up: Response: No adverse reaction ko1 10:56 Follow up: Response: Pain is decreased; RASS: Alert and Calm (0) ko1 10:41 Drug: Ondansetron IVP 4 mg IVP once; over 2 minutes Route: IVP; Site: right antecubital;ld1 10:56 Follow up: Response: No adverse reaction ko1 11:43 Drug: Piperacillin-Tazobactam IVPB 3.375 grams IVPB once over 60 mins; (mix in NS 100 ld1 mL) Route: IVPB; Infused Over: 60 mins; Site: right antecubital; 12:45 Follow up: Response: No adverse reaction; IV Status: Completed infusion; IV Intake: ko1 100ml 12:13 Drug: vancoMYCIN IVPB 1 grams IVPB once over 2 hrs Route: IVPB; Infused Over: 2 hrs; ld1 Site: right antecubital; 13:43 Follow up: Response: No adverse reaction; IV Status: Completed infusion; IV Intake: ll1 250ml 13:46 Not Given (transported before receivingg): morphineor iv 4 mg IVP once over 4 mins ll1 Medication: 13:08 VIS not applicable for this client. ko1 Intake: 12:45 IV: 100ml; Total: 100ml. ko1 13:43 IV: 250ml; Total: 350ml. 1 Outcome: 11:37 ER care complete, transfer ordered by MD. thurston 13:47 Transferred by ground EMS to [facility], Transfer form completed. 1 13:47 Condition: stable 13:47 Instructed on the need for transfer, 13:48 Patient left the ED. 1 Signatures: Dispatcher [employer] EDMS Melissa Medina, Reg Frederic Lopes, RN RN Mireya Matias RN RN 1 Trish Gupta RN RN 1 Jeannine Parr, DATA ENTRY EMAIL PROCESSOR DATA ENTRY EMAIL PROCESSOR [facility] Ashley Aguiar RN RN ko1
--- NOTE | 2024-02-24 11:38 | EDPHYS ---
Physician Documentation [facility] Name: Luther Otoole Age: 63 yrs Sex: Male : 1960 Arrival Date: 02/24/2024 Time: 09:10 Bed 8 Private MD: ED Physician Gildardo Gupta HPI: 02/23 09:13 This 63 yrs old Black Male presents to ER via Ambulatory with complaints of Infected jh7 thumb. 09:13 63-year-old male presents to the ER complaining of left thumb injury/infection. He jh7 reports that he punctured his left thumb with a rahul screw 1 week ago, and that this morning he noticed a collection of pus over the DIP with significant swelling and redness of his entire thumb. Unable to perform flexion. Denies fever. Tetanus up to date.. Historical: - Allergies: 09:21 No Known Drug Allergies; bp - Home Meds: 09:21 Hydrochlorothiazide Oral [Active]; atorvastatin oral [Active]; bp - PMHx: 09:21 Hypertension; bp - Immunization history:: Adult Immunizations Last tetanus immunization: up to date. - Infectious Disease History:: Denies. - Social history:: Smoking status: Patient denies any tobacco usage or history of. ROS: 09:13 Constitutional: Per HPI jh7 Exam: 09:13 Constitutional: This is a well developed, well nourished patient who is awake, alert, jh7 and in no acute distress. Head/Face: Normocephalic, atraumatic. Eyes: Pupils equal round and reactive to light, extra-ocular motions intact. Lids and lashes normal. Conjunctiva and sclera are non-icteric and not injected. Cornea within normal limits. Periorbital areas with no swelling, redness, or edema. Neck: Trachea midline, no thyromegaly or masses palpated, and no cervical lymphadenopathy. Supple, full range of motion without nuchal rigidity, or vertebral point tenderness. No Meningismus. Cardiovascular: Regular rate and rhythm with a normal S1 and S2. No gallops, murmurs, or rubs. Normal PMI, no JVD. No pulse deficits. Respiratory: Lungs have equal breath sounds bilaterally, clear to auscultation and percussion. No rales, rhonchi or wheezes noted. No increased work of breathing, no retractions or nasal flaring. Abdomen/GI: Soft, non-tender, with normal bowel sounds. No distension or tympany. No guarding or rebound. No evidence of tenderness throughout. Neuro: Awake and alert, GCS 15, oriented to person, place, time, and situation. Motor strength 5/5 in all extremities. Sensory grossly intact. Normal gait. 09:13 Musculoskeletal/extremity: ROM: Left thumb is locked in extension. Patient is unable to perform any flexion at the DIP secondary to pain and swelling., Circulation is intact in all extremities. Sensation intact. 09:13 Skin: cellulitis, that is moderate, on the L thumb extending to the wrist, purulent drainage collection just distal to the DIP. Vital Signs: 09:19 BP 138 / 99; Pulse 106; Resp 20; Temp 99; Pulse Ox 100% ; Weight 79.38 kg; Height 5 ft. bp 9 in. ; 10:41 BP 125 / 86; Pulse 97; Resp 18; Pulse Ox 95% on R/A; Pain 8/10; ld1 13:08 BP 149 / 97; Pulse 86; Resp 16; Pulse Ox 99% ; ko1 13:47 BP 132 / 81; Pulse 82; Resp 17; Temp 98.9; Pulse Ox 100% ; ll1 09:19 Body Mass Index 25.84 (79.38 kg, 175.26 cm) bp 10:41 Pain Scale: Adult ld1 MDM: 09:13 Patient medically screened. [facility] 12:47 Differential diagnosis: Cellulitis, abscess, tenosynovitis. Data reviewed: vital signs, [facility] nurses notes, lab test result(s), radiologic studies, plain films. Consideration of Admission/Observation The patient will be transferred for higher level of care/required specialty not available [facility]. Management of patient was discussed with the following: ER MD, Dr. Rowe, auto accepted. I considered the following discharge prescriptions or medication management in the emergency department Medications were administered in the Emergency Department. See MAR. Care significantly affected by the following chronic conditions: Hypertension. Counseling: I had a detailed discussion with the patient and/or guardian regarding the historical points, exam findings, and any diagnostic results supporting the discharge/admit diagnosis, the need to transfer to another facility, for higher level of care, [facility] does not immediately have the required specialist, hand surgery. Response to treatment: the patient's symptoms have mildly improved after treatment. 02/23 09:20 Order name: CBC with Diff; Complete Time: 12:[address] [facility] 02/23 09:20 Order name: CMP; Complete Time: 11:[address] [facility] 02/23 09:20 Order name: Lactate w/ 2H reflex if indic.; Complete Time: 11:[address] [facility] 02/23 09:20 Order name: Blood Culture Adult (2) [facility] 02/23 12:08 Order name: CBC Smear Scan; Complete Time: 12:22 [facility] 02/23 09:20 Order name: XRAY Hand LEFT 3 View; Complete Time: 11:[address] [facility] Administered Medications: 10:41 Drug: fentaNYL (PF) IVP 50 mcg IVP once Route: IVP; Site: right antecubital; ld1 10:56 Follow up: Response: No adverse reaction ko1 10:56 Follow up: Response: Pain is decreased; RASS: Alert and Calm (0) ko1 10:41 Drug: Ondansetron IVP 4 mg IVP once; over 2 minutes Route: IVP; Site: right antecubital;ld1 10:56 Follow up: Response: No adverse reaction ko1 11:43 Drug: Piperacillin-Tazobactam IVPB 3.375 grams IVPB once over 60 mins; (mix in NS 100 ld1 mL) Route: IVPB; Infused Over: 60 mins; Site: right antecubital; 12:45 Follow up: Response: No adverse reaction; IV Status: Completed infusion; IV Intake: ko1 100ml 12:13 Drug: vancoMYCIN IVPB 1 grams IVPB once over 2 hrs Route: IVPB; Infused Over: 2 hrs; ld1 Site: right antecubital; 13:43 Follow up: Response: No adverse reaction; IV Status: Completed infusion; IV Intake: ll1 250ml 13:46 Not Given (transported before receivingg): morphineor iv 4 mg IVP once over 4 mins ll1 Disposition: 10:39 I was immediately available on-site in the Emergency Department for consultation in the [facility] [place] of the patient. Disposition Summary: 02/24/24 11:37 Transfer Ordered Notes: Transfer Location: [place] [id number] Reason: Higher level of care [facility] Condition: Stable [facility] Problem: new [facility] Symptoms: are unchanged [facility] Accepting Physician: LEROY Lancaster MD (auto accepted)(02/24/24 13:48) ll1 Diagnosis - Left thumb abscess 7 - Left thumb cellulitis [facility] Forms: - Medication Reconciliation Form 7 - SBAR form 7 Signatures: Dispatcher [employer] Frederic Zamora RN RN Mireya Matias RN RN ll1 Gildardo Gupta, DO ms3 Trish Gupta RN RN 1 Jeannine Parr, [employer] C[employer] [facility] Ashley Aguiar RN ko1 Corrections: (The following items were deleted from the chart) 09:23 09:13 63-year-old male presents to the ER complaining of left thumb injury/infection. [facility] He reports that he punctured his left thumb with a rahul screw 1 week ago, and that this morning he noticed a collection of pus over the DIP with significant swelling and redness of his entire thumb. Unable to perform flexion. Denies fever.. [facility] 13:33 11:37 accepting [place] [id number] 13:48 13:33 LEROY Lancaster MD (auto accepted) [facility] ll1
--- NOTE | 2024-02-24 11:54 | RAD REPORT ---
EXAM DESCRIPTION: RAMÍREZ DUENAS - 02/24/2024 10:30 am CLINICAL HISTORY: Pain;Swelling COMPARISON: No comparisons TECHNIQUE: Left hand, 3 views. FINDINGS: No fracture is identified. Soft tissue swelling about the thumb and thenar eminence. Deformity and cystic changes along the proximal aspect of the scaphoid. There is no dislocation or pe riosteal reaction noted. Joint alignment is maintained. No foreign body or other soft tissue abnormality. Linear soft tissue mineralization antro lateral to the radial styloid. IMPRESSION: No acute osseous abnormality. Soft tissue swelling about the thumb. Chronic changes at the wrist as above.
[2024-02-24 12:08] LABS: Blood Morphology Comment NOT SEEN (NOT SEEN); Platelet Estimate ADEQ; White Blood Cell Scan OK (OK)
[2024-02-24] MEDS ORDERED: MORPHINE 4 MG/ML SYR ONE (13:14)
[2024-02-24 14:14] VITALS: BP 132/81; TEMP 98.9; O2SAT 100
== END 2024-02-24 13:48 | disposition short-term general hospital (02) ==
LOC: ER 09:10
DX: L02.512 Cutaneous abscess of left hand (principal); L03.012 Cellulitis of left finger
CPT/HCPCS: 36415; 80053; 83605; 85025; 87040; 96365; 96375; 99285; J2405; J2543; J3010; J7050